=== PATIENT | male | born 1960 | race Caucasian/White ===

== ENCOUNTER → 2016-07-08 | Outpatient (CLI) | payer MEDICAID ==
--- NOTE | 2016-07-08 16:16 | US ---
Thyroid Sonogram Clinical Indication: Nodule of the left lobe of the thyroid. Technique: Longitudinal and transverse images of the thyroid gland were obtained. Findings: The thyroid gland is mildly heterogeneous and lobular but there is no definite nodule. The right lobe measures 1.5 x 1.6 x 4.4 cm. The left lobe measures 1.5 x 1.7 x 3.6 cm. The isthmus measu res 0.18 cm. Normal neck lymph nodes are present. Impression: Lobularity of the thyroid gland without definite nodule.
== END ==
LOC: FIMAGING 13:45
PROVIDERS: ATTEND Physician Assistant
DX: Z03.89 Encounter for observation for other suspected diseases and conditions ruled out (principal)

== ENCOUNTER 2016-07-16 15:42 | Emergency (ER) | payer MEDICAID ==
[2016-07-16 15:56] VITALS: BP 134/89; PULSE 94; RESP 16; TEMP 98.2; O2SAT 94
== END 2016-07-16 17:43 | disposition left against medical advice (07) ==
DX: Z53.21 Procedure and treatment not carried out due to patient leaving prior to being seen by health care provider (principal)

== ENCOUNTER 2016-07-17 04:08 | Emergency (ER) | payer MEDICAID ==
[2016-07-17 04:15] VITALS: BP 103/78; PULSE 96; RESP 16; TEMP 98.1; O2SAT 95
--- NOTE | 2016-07-17 04:18 | EDPHY ---
H & P Stated Complaint: Middle back pain from a slip and fall aprox 3 weeks ago HPI/ROS: HPI CHIEF COMPLAINT: Mid thoracic back pain status post mechanical trip and fall HISTORY OF PRESENT ILLNESS: This patient very pleasant 55-year-old male significant past medical history for chronic pain and hypothyroidism, presents emergency room with mid thoracic back pain denies chest pain or shortness of breath. He describes pain as sharp stabbing mid thoracic back. He has had this for 3 weeks and progressively getting worse it does not radiate anywhere. He tells me there was a period about 3 weeks ago he fell on his back and thinks he injured his mid thoracic spine from the fall. He tried hot baths went saw his chiropractor and some wheals he rubbed on their he does tell me that it did get slightly better however it is now back. He denies new trauma. He denies numbness or tingling anywhere, denies weakness, denies abdominal pain chest pain or shortness of breath. Past Medical History: Thyroid disease, chronic pain Past Surgical History: denies any significant surgical history Social History: Homeless, denies use of drugs alcohol tobacco products Family History: Noncontributory ROS REVIEW OF SYSTEMS: A comprehensive 10 point review of systems is otherwise negative aside from elements mentioned in the history of present illness. Exam Constitutional triage nursing summary reviewed, vital signs reviewed, awake/ alert. Eyes normal conjunctivae and sclera, EOMI, PERRLA. HENT normal inspection, atraumatic, moist mucus membranes, no epistaxis, neck supple/ no meningismus, no raccoon eyes. Respiratory clear to auscultation bilaterally, normal breath sounds, no respiratory distress, no wheezing. Cardiovascular rate normal, regular rhythm, no murmur, no edema, distal pulses normal. Gastrointestinal soft, non-tender, no rebound, no guarding, normal bowel sounds, no distension, no pulsatile mass. Genitourinary no CVA tenderness. Musculoskeletal back exam: This patient is midline thoracic back pain no step -offs, no crepitus to reproducible on exam, there is no significant paravertebral pain, full range of motion, no calf swelling, no tenderness of extremities, no meningismus, good pulses, neurovascularly intact. Skin pink, warm, & dry, no rash, skin atraumatic. Neurologic awake, alert and oriented x 3, AAOx3, moves all 4 extremities equally, motor intact, sensory intact, CN II-XII intact, normal cerebellar, normal vision, normal speech. Psychiatric normal mood/affect. Heme/Lymph/Immune no lymphadenopathy. Differential Diagnosis: Includes but is not limited to in a particular order compression fracture, degenerative joint disease, annular tear, nerve root compression, malalignment of T-spine, musculoskeletal injury, muscle strain, soft tissue injury, contusion of the bone Medical Decision Making: This patient had a midline thoracic spine x-ray to rule out trauma. He has only focally tender in his mid thoracic region midline. No step-offs or crepitus. No radiation of pain. Patient will also be given ibuprofen. Re-evaluation: ED x-ray T-spine: three-view: image interpreted by myself. There may be a high T-spine compression fracture there is definitely vertebral body with some height loss, however does appear older does not appear acute. Will place patient on anti-inflammatory pain medicine and referred to his primary care doctor and Neurosurgery. I did explain him if he gets worsening pain numbness or tingling or severe pain he needs to seek medical attention specifically to return to the emergency room or follow up with his primary care doctor he may at 1 point need MRI of his back. At this time is neurological intact no acute distress resting comfortably. He understands. Source: Patient - Personal History Current Tetanus/Diphtheria Vaccine: Yes Current Tetanus Diphtheria and Acellular Pertussis (TDAP): Yes - Medical/Surgical History Hx Asthma: No Hx Chronic Respiratory Disease: No Hx Diabetes: No Hx Cardiac Disease: No Hx Renal Disease: No Hx Cirrhosis: No Hx Alcoholism: No Hx HIV/AIDS: No Hx Splenectomy or Spleen Trauma: No Other PMH: hypothyroid, insomnia, disc disease L 4-5 - Social History Smoking Status: Current every day smoker Constitutional: Initial Vital Signs Temperature (C) 36.7 C 07/17/16 04:11 Heart Rate 96 07/17/16 04:11 Respiratory Rate 16 07/17/16 04:11 Blood Pressure 103/78 07/17/16 04:11 O2 Sat (%) 95 07/17/16 04:11 O2 Delivery Mode Room Air Allergies/Adverse Reactions: Penicillins Allergy (Unknown, Verified 07/16/16 15:52) Home Medications: Medication Instructions Recorded Levothyroxine 07/16/16 traZODone 07/16/16 Ibuprofen [Motrin (*)] 800 mg PO Q6-8PRN #30 tab 07/17/16 Medical Decision Making - Data Points Medications Given: Discontinued Medications Ibuprofen (Motrin) 800 mg PO EDNOW ONE Stop: 07/17/16 04:25 Last Admin: 07/17/16 04:27 Dose: 800 mg Departure - Departure Disposition: Home, Routine, Self-Care Clinical Impression: Back pain Qualifiers: Back pain location: thoracic back pain Chronicity: acute Back pain laterality: midline Qualifier Code: (M54.6) Pain in thoracic spine Condition: Good Instructions: Back Pain (ED) Additional Instructions: 1. Return emergency room if develops worsening symptoms questions or concerns. Referrals: Tari Wilkins PA [Primary Care Provider] - As per Instructions Prescriptions: Ibuprofen [Motrin (*)] 800 mg PO Q6-8PRN #30 tab
[2016-07-17] MEDS ORDERED: IBUPROFEN 200 MG TAB PO ONE (04:24)
--- NOTE | 2016-07-17 08:53 | DX ---
Thoracic spine, 2 views. HISTORY: Trauma. Pain. FINDINGS: Mild compression deformities of the superior endplates of the T6 and T7 vertebral bodies id entified, age indeterminate. No subluxation. Degenerative changes incidentally noted within the cervical spine inferiorly, with di sk space narrowing at C6-C7. IMPRESSION: 1. Age-indeterminate mild compression deformities of the superior endplates of T6 and T7. 2. C6-C7 degenerative disk disease.
== END 2016-07-17 05:46 | disposition home or self-care (01) ==
DX: S29.9XXA Unspecified injury of thorax, initial encounter (principal); F17.200 Nicotine dependence, unspecified, uncomplicated; W01.0XXA Fall on same level from slipping, tripping and stumbling without subsequent striking against object, initial encounter

== ENCOUNTER 2016-07-23 21:36 | Emergency (ER) | payer MEDICAID ==
[~2016-07-23 21:36] MED LIST: IBUPROFEN 600 MG TAB PO SCH
[2016-07-23] MEDS ORDERED: IBUPROFEN 600 MG TAB PO ONE ×2 (21:44→21:47)
--- NOTE | 2016-07-23 21:53 | EDPHY ---
H & P Time Seen by Provider: 07/23/16 21:41 HPI/ROS: CHIEF COMPLAINT: Continued back pain HISTORY OF PRESENT ILLNESS: This 55-year-old man slipped on the ice about 1 month ago and was diagnosed with compression fractures of T6 and T7 when he was seen here in July 17. Patient ran out of ibuprofen tonight. He has been drinking alcohol. He went back to smoking after he got kicked out of his house and lost his job. Patient says he still has pain in his mid back which is worse with coughing or sneezing. It is not associated with weakness or numbness in extremities or incontinence. No new or other trauma. The nurse's notes say he has trouble breathing but he basically tells me his back pain is worse with a deep breath but he does not feel dyspneic. REVIEW OF SYSTEMS: Eye: no change in vision ENT: no sore throat Cardiac: no chest pain or syncope Pulmonary: Chronic cough with smoking but no change, no hemoptysis. Abdomen: no vomiting, diarrhea, abdominal pain, no melena or bloody stool. Musculoskeletal: Back pain as in the HPI Skin: no rash Neuro: no headache, no weakness or numbness in extremities. Constitutional: no fever : no urinary symptoms, no incontinence A comprehensive 10 point review of systems is otherwise negative aside from elements mentioned in the history of present illness. PAST MEDICAL HISTORY: Tspine xray T6 and T7 compression fractures on July 17, thyroid disease, chronic pain, appendectomy. Carpal tunnel. No history of peptic ulcer disease. Social history: Tobacco smoker, drank alcohol tonight. Currently homeless carrying a backpack. General Appearance: Alert and conversant, cooperative. Eyes: No scleral icterus. ENT, Mouth: Normal mucous membranes. Respiratory: Normal respiratory effort, breath sounds equal, lungs are clear to auscultation. Speaks in full sentences. Cardiovascular: Regular rate and rhythm. Gastrointestinal: Abdomen is soft and non tender. Neurological: Alert and oriented x3. Normally conversant. Face symmetric, normal movement and sensation in all extremities. 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 Skin: Warm and dry, no rashes. Musculoskeletal: Brace on the right wrist. Mild mid T-spine tenderness. Psychiatric: Not agitated. Mildly anxious. Emergency Department course/MDM: Patient received oral ibuprofen here and a prescription. He does not have symptoms of neurologic compromise and does not have objective deficit on exam. Plan for T-spine CT to see if he has progressive compression. 2237: Results discussed with the patient. His T-spine fractures are stable. Will have [employer] fit him with a Camron brace and he can follow up with his primary care provider or with Neurosurgery. His ibuprofen prescription is refilled. HR down to 91 at this time, was likely elevated because of anxiety and pain on arrival. Smoking Status: Current every day smoker Constitutional: Initial Vital Signs Temperature (C) 36.7 C 07/23/16 21:39 Heart Rate 125 H 07/23/16 21:39 Respiratory Rate 20 07/23/16 21:39 Blood Pressure 112/66 07/23/16 21:39 O2 Sat (%) 92 07/23/16 21:39 O2 Delivery Mode Room Air Allergies/Adverse Reactions: Penicillins Allergy (Unknown, Verified 07/23/16 21:47) Home Medications: Medication Instructions Recorded Levothyroxine 07/16/16 traZODone 07/16/16 Ibuprofen [Motrin (*)] 800 mg PO Q6-8PRN #30 tab 07/17/16 Ibuprofen 600 mg PO Q8 PRN #20 tablet 07/23/16 Medical Decision Making - Diagnostics Imaging: CT reviewed by myself and reported by Dr. Roberts at 10:25 p.m. shows T6 and T7 compression fracture stable with no retropulsion. Differential Diagnosis: Differential considered including but not limited to thoracic compression fracture, pulmonary embolism, spinal cord injury, subluxation or dislocation. - Data Points Medications Given: Discontinued Medications Ibuprofen (Motrin) 600 mg PO EDNOW ONE Stop: 07/23/16 21:48 Last Admin: 07/23/16 21:49 Dose: 600 mg Departure - Departure Disposition: Home, Routine, Self-Care Clinical Impression: Compression fx, thoracic spine Condition: Good Instructions: Thoracolumbar Fracture (ED) Additional Instructions: Try to avoid bending, twisting, heavy lifting. Return for increasing or severe pain, weakness or numbness in legs, any bowel or bladder problems. Referrals: Tari Wilkins PA [Primary Care Provider] - As per Instructions Catarino Doherty MD [Medical Doctor] - 5-7 days, call for appt. (followup in the spine office this week) Prescriptions: Ibuprofen 600 mg PO Q8 PRN #20 tablet PRN Reason: back pain
--- NOTE | 2016-07-23 22:32 | CT ---
CT thoracic spine without contrast. History: Back pain. Recent fall. Comparison: Radiograph July 17, 2016. Technique: 1.5 mm helical images were obtained of the thoracic spine without contrast. Multiplanar re formation was performed. Radiation dose reduction technique was utilized. Findings: Mild anterior wedge compression deformity of T6 and T7 vertebral bodies stable from the com parison x-ray. There is sclerosis and fracture line visualized without paravertebral hematoma or soft tissue swelling. This was suggested subacute. No evidence of retropulsed fragment into the spinal ca nal. No significant spinal canal or neural foraminal narrowing. Vacuum disk phenomena is seen at T5-T 6 and T6-T7. Mild end plate sclerosis is seen superiorly in T4, T5, and T8 vertebral bodies without h eight loss but mild central depression of the superior endplate. No significant spondylolisthesis. No evidence of widening of the facets or between the interspinous processes. Calcified pulmonary nodule is seen in the superior segment left lower lobe indicating prior granulomatous disease. Impression: Mild anterior wedge compression deformity of T6 and T7 vertebral body with a stable appea constantino, probably subacute. Results discussed with Dr. Alok Boland.
[2016-07-23 22:34] VITALS: RESP 16
[2016-07-23 23:23] VITALS: BP 109/62; PULSE 82; TEMP 98.6; O2SAT 97
== END 2016-07-23 23:23 | disposition home or self-care (01) ==
DX: S22.050D Wedge compression fracture of T5-T6 vertebra, subsequent encounter for fracture with routine healing (principal); S22.060D Wedge compression fracture of T7-T8 vertebra, subsequent encounter for fracture with routine healing; F17.200 Nicotine dependence, unspecified, uncomplicated; W00.0XXD Fall on same level due to ice and snow, subsequent encounter